=== PATIENT | female | born 1935 | race Caucasian/White ===

== ENCOUNTER → 2018-04-03 | Outpatient (CLI) | payer OTHER | LOC: M WUC 08:51 | DX: M17.11 Unilateral primary osteoarthritis, right knee (principal) | CPT/HCPCS: 73564 ==

== ENCOUNTER → 2020-10-21 | Outpatient (CLI) | payer MEDICARE ==
--- NOTE | 2020-10-21 10:08 | REPMRS ---
Patient History The patient states she has not had a clinical breast exam in over a year. Patient is postmenopausal. No known family history of cancer. Patient states no breast complaints today. Patient has signed MRS History Sheet. Digital Woman Screen Mammo: October 21, 2020 - Exam #: [id number] Bilateral CC and MLO view(s) were taken. Technologist: Edna Lopez, Technologist Prior study comparison: December 13, 2014, bilateral digital mammo screening bilat, performed at [facility]. February 23, 2010, bilateral digital mammo screening bilat, performed at [facility]. February 11, 2009, bilateral digital mammo screening bilat, performed at [facility]. FINDINGS: There are scattered fibroglandular densities. The Volpara volumetric breast density category is:B. There has been no change in the appearance of the mammogram from the prior studies. There is a mild amount of scattered fibroglandular density which is fairly symmetric. There is no interval development of dominant mass, architectural distortion, or grouped microcalcification suggestive of malignancy. 3-D tomosynthesis shows no additional findings. Assessment: BI-RADS/ACR category 1 mammogram. Negative Mammogram. Recommendation Routine screening mammogram of both breasts in 1 year (for women over age 40). This mammogram was interpreted with the aid of an FDA-approved computer-aided dectection system. Electronically Signed By: Shoaib Bess MD 10/21/20 100
--- NOTE | 2020-10-21 10:40 | DEXAMM ---
INDICATION: Z13.820 SCREENING FOR OSTEOPOROSIS. COMPARISON: Comparison densitometry studies are dated August 23, 2008 and July 24, 2000.. TECHNIQUE: Bone density was measured using dual-energy x-ray absorptionmetry (DEXA). FINDINGS: AP SPINE L1-L4 BMD 1.201 g/cm2 Young Adult T-Score 0.1 Age Matched Z-Score 2.0. LT FEMUR, TOTAL BMD 0.902 g/cm2 Young Adult T-Score -0.8 Age Matched Z-Score 1.5. LT NECK BMD 0.750 g/cm2 Young Adult T-Score -2.1 Age Matched Z-Score 0.3. RT FEMUR, TOTAL BMD 0.890 g/cm2 Young Adult T-Score -0.9 Age Matched Z-Score 1.4. RT NECK BMD 0.783 g/cm2 Young Adult T-Score -1.8 Age Matched Z-Score 0.6. IMPRESSION: There is normal bone density of the spine. There is low bone density of the left hip. There is low bone density of the right hip. The density of the spine has decreased 1.2% since the initial exam on June 26, 2000. The density of the spine decreased 0.2% since most recent exam on August 23, 2008. The density of the left hip has decreased 7.4% since initial exam on August 24, 2000. The density of the left hip has decreased 7.9% since most recent exam on August 23, 2008. The density of the right hip has decreased 8.2% since the initial exam on June 21, 2004. The density of the right hip has decreased 8.4% since the most recent exam on August 23, 2008. FOLLOW-UP: Recommendation for the next bone density exam: 2 years. <Electronically signed by Shoaib Bess > 10/21/20 1039
== END ==
LOC: M WHC 08:09
PROVIDERS: ATTEND Nurse Practitioner Adult Health
DX: Z12.31 Encounter for screening mammogram for malignant neoplasm of breast (principal); M81.0 Age-related osteoporosis without current pathological fracture

== ENCOUNTER → 2020-10-26 | Outpatient (CLI) | payer MEDICARE ==
--- NOTE | 2020-10-26 08:48 | REP ---
INDICATION: PAIN COMPARISON: None. TECHNIQUE: Internal rotation, external rotation, and Y view. FINDINGS: Moderate to early-advanced osteoarthritic degenerative changes include cortical irregularity and subtle spurring at the acromioclavicular joint along with osteophyte forming along the inferior 6 o'clock position of the glenoid rim and subtle cortical irregularity involving the humeral tuberosity. The subacromial space appears somewhat decreased to approximately 7.4 mm. No periarticular calcifications or loose bodies are identified. No evidence for acute fracture or dislocation. 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 <Electronically signed by Navi Stahl > 10/26/20 1828
== END ==
LOC: M WUC 08:23
PROVIDERS: ATTEND Nurse Practitioner Adult Health
DX: M19.012 Primary osteoarthritis, left shoulder (principal)

== ENCOUNTER → 2022-03-09 | Outpatient (CLI) | payer MEDICARE | LOC: M WHC 07:15 | PROVIDERS: ATTEND Nurse Practitioner Adult Health | DX: Z12.31 Encounter for screening mammogram for malignant neoplasm of breast (principal) ==

== ENCOUNTER → 2022-07-27 | Outpatient (CLI) | payer MEDICARE ==
[~2022-07-27] MED LIST: ALLO10TA PO; AMLO1TAB24 PO; AMLO2.5T3 PO; CAL-TAB2 PO; MULT-40 PO
== END ==
LOC: M LABSMTC 10:03
PROVIDERS: ATTEND Anesthesiology
DX: Z11.52 Encounter for screening for COVID-19 (principal)

== ENCOUNTER 2022-07-31 07:37 | Day surgery (SDC) | payer MEDICARE ==
[~2022-07-31] VITALS: Ht 160 cm; Wt 58.1 kg
[~2022-07-31 07:37] MED LIST changes: +BSS IRR 500ML/OMIDRIA 4ML IRR BAG (OR ONLY) As Ordered ONE; +CEFUROXIME 1MG/0.1ML INTRACAMERAL INJ As Ordered ONE; +CYCLOPENTOLATE 1% OPHTH SOLN 2ML BTL OS SCH; +LIDOCAINE 1% SDV 5ML VIAL As Ordered ONE; +OFLOXACIN 0.3 % (OCUFLOX) OPTH SOL 5ML OS SCH; +PHENYLEPHRINE 2.5% OPHTH SOL 2ML OS SCH; +PROPARACAINE 0.5% OPHTH SOL 15ML OS ONE; +TROPICAMIDE 1% OPHTH SOLN 15ML OS SCH
[2022-07-31] MEDS ORDERED: fentaNYL 100 MCG/2 ML INJECTION As Ordered ONE (08:55)
[2022-07-31 09:39] VITALS: BP 138/80
== END 2022-07-31 10:00 | disposition home or self-care (01) ==
LOC: M SDC 07:37
PROVIDERS: ATTEND Ophthalmology
DX: H25.12 Age-related nuclear cataract, left eye (principal); I10 Essential (primary) hypertension; J45.909 Unspecified asthma, uncomplicated; Z79.899 Other long term (current) drug therapy
CPT/HCPCS: 66984; J0697; J1097; J3010; V2632

== ENCOUNTER → 2023-01-11 | Outpatient (REF) | payer MEDICARE ==
[~2023-01-11] MED LIST changes: -BSS IRR 500ML/OMIDRIA 4ML IRR BAG (OR ONLY) As Ordered ONE; -CEFUROXIME 1MG/0.1ML INTRACAMERAL INJ As Ordered ONE; -CYCLOPENTOLATE 1% OPHTH SOLN 2ML BTL OS SCH; -LIDOCAINE 1% SDV 5ML VIAL As Ordered ONE; -OFLOXACIN 0.3 % (OCUFLOX) OPTH SOL 5ML OS SCH; -PHENYLEPHRINE 2.5% OPHTH SOL 2ML OS SCH; -PROPARACAINE 0.5% OPHTH SOL 15ML OS ONE; -TROPICAMIDE 1% OPHTH SOLN 15ML OS SCH
[2023-01-11 14:38] LABS: INFLUENZA A AMPLIFICATION NEGATIVE (NEGATIVE); INFLUENZA B AMPLIFICATION NEGATIVE (NEGATIVE)
== END ==
LOC: M LAB REF 13:34
PROVIDERS: ATTEND Internal Medicine
DX: R05.9 Cough, unspecified (principal)

== ENCOUNTER → 2023-10-07 | Outpatient (CLI) | payer MEDICARE | LOC: M WUC 09:41 | PROVIDERS: ATTEND Nurse Practitioner Adult Health | DX: M25.562 Pain in left knee (principal) ==

== ENCOUNTER 2024-04-13 09:44 | Day surgery (SDC) | payer MEDICARE ==
[~2024-04-13] VITALS: Ht 160 cm; Wt 57.6 kg
[~2024-04-13 09:44] MED LIST changes: +ASPI81TA26 PO; +ATOR1TAB19 PO; +LR 1,000 ML IV SCH; +PRES1CHW PO; +[UNRECOGNIZED DRUG - CODE] TP
[2024-04-13] MEDS: CYCLOPENTOLATE 1% OPHTH SOLN 2ML BTL OD SCH (10:31)
[2024-04-13] MEDS: TETRACAINE 0.5% OPHTH SOLN 4ML OD SCH (10:32)
[2024-04-13] MEDS: FLURBIPROFEN 0.03% OPHTH SOLN 2.5 ML OD SCH (10:32)
[2024-04-13] MEDS: PHENYLEPHRINE 2.5% OPHTH SOL 2ML OD SCH (10:32)
[2024-04-13] MEDS ORDERED: MIDAZOLAM INJ 2MG/2ML VIAL As Ordered ONE (10:49)
[2024-04-13] MEDS ORDERED: fentaNYL 100 MCG/2 ML INJECTION As Ordered ONE (10:49)
[2024-04-13] MEDS: LIDOCAINE 1% SDV 5ML VIAL As Ordered ONE (11:13)
[2024-04-13] MEDS: CEFUROXIME 1MG/0.1ML INTRACAMERAL INJ As Ordered ONE (11:14)
[2024-04-13 11:34] VITALS: BP 125/66; TEMP 96.9; O2SAT 93
== END 2024-04-13 11:56 | disposition home or self-care (01) ==
LOC: M SDC 09:44
PROVIDERS: ATTEND Ophthalmology
DX: H25.9 Unspecified age-related cataract (principal); J30.1 Allergic rhinitis due to pollen; Z79.899 Other long term (current) drug therapy; Z98.42 Cataract extraction status, left eye; Z87.891 Personal history of nicotine dependence
CPT/HCPCS: 66984; J0697; J2250; J3010; V2632

== ENCOUNTER → 2024-05-06 | Outpatient (REF) | payer MEDICARE ==
[~2024-05-06] MED LIST changes: -LR 1,000 ML IV SCH
[2024-05-06 13:46] LABS: RSV AMPLIFICATION NEGATIVE (NEGATIVE)
== END ==
LOC: M LAB REF 11:58
PROVIDERS: ATTEND Nurse Practitioner Adult Health
DX: J06.9 Acute upper respiratory infection, unspecified (principal)

== ENCOUNTER → 2024-06-16 | Outpatient (REF) | payer MEDICARE ==
[2024-06-16 17:29] LABS: RSV AMPLIFICATION NEGATIVE (NEGATIVE)
== END ==
LOC: M LAB REF 16:08
PROVIDERS: ATTEND Nurse Practitioner Adult Health
DX: J01.90 Acute sinusitis, unspecified (principal)